=== PATIENT | male | born 1980 | race Caucasian/White ===

== ENCOUNTER 2017-10-06 10:26 | Emergency (ER) | payer OTHER ==
[~2017-10-06] VITALS: Ht 167.6 cm; Wt 65.7 kg
[~2017-10-06 10:26] MED LIST: LEVO25TA PO; TEST5GEL TOP
[2017-10-06 10:35] VITALS: Ht 167.6 cm; Wt 65.7 kg
[2017-10-06 11:07] VITALS: TEMP 36.8
[2017-10-06] MEDS ORDERED: BUPR1SUB23 PO (11:08)
[2017-10-06 11:40] LABS: BASO % 0.4 %; BASO ABS # 0.03 K/uL (0-0.2); COMPLETE YES; HEMATOCRIT 43.5 % (42-52); IG% 0.1 %; LYMPH % 28.3 %; LYMPH ABS # 2.32 K/uL (1.2-3.4); MEAN CELL VOLUME 93.1 fL (80-100); MEAN CORPUSCULAR HEMOGLOBIN 31.5 pg (25-34); MEAN CORPUSCULAR HGB CONC 33.8 g/dl (32-36); MEAN PLATELET VOLUME 9.6 fL (7.4-10.4); MONO % 10.5 %; NEUT % 56.7 %; PLATELET COUNT 254 K/uL (130-400); RED BLOOD COUNT 4.67 M/uL (4.7-6.1)
[2017-10-06 11:56] LABS: BUN/CREATININE RATIO 7.4 (10-20); CALCIUM 8.3 mg/dl (8.5-10.1); CREATININE 0.64 mg/dl (0.60-1.40); POTASSIUM 3.9 mmol/L (3.5-5.1)
--- NOTE | 2017-10-06 11:56 | DIAGNOSTIC IMAGING REPORT ---
CHEST ONE VIEW PORTABLE CLINICAL HISTORY: Lower extremity swelling. COMPARISON STUDY: No previous studies for comparison. FINDINGS: Lung volumes are normal. No pneumothorax or pleural effusion is present. Cardiac size is normal. Mediastinal contours are normal. There is no evidence of pulmonary edema. IMPRESSION: No acute cardiopulmonary findings. Electronically signed by: Peter Montes De Oca M.D. 10/06/2017 11:55 AM Dictated Date/Time: 10/06/2017 11:54 AM
[2017-10-06 13:46] VITALS: BP 111/68; PULSE 65; O2SAT 98
--- NOTE | 2017-10-06 16:04 | EMERGENCY ROOM VISIT NOTE ---
History Report prepared by Scribe: Annamaria Mitchell Under the Supervision of: Dr. Brad Mota D.O. First contact with patient: 10:45 Chief Complaint: SWELLING TO EXTREMITY Stated Complaint: DRY,CRAMPS, SWELLING LIPS/LEGS History of Present Illness The patient is a 37 year old male who presents to the Emergency Room with complaints of persistent swelling to his bilateral legs for the past 1 week. He has also experienced "cramping" pain in his legs. Last night he took Sabine for allergy symptoms, and states it provided good relief for nasal congestion and sneezing. He denies any sore throat or ear pain. He states he feels dehydrated so he has been drinking a lot of fluids. The patient denies headache , change in vision, fevers, chest pain, shortness of breath, nausea, vomiting, diarrhea, pain with urination, and melena. He denies any recent changes to medications and states he has history of previous DVT or PE's. Source of History: patient Onset: 1 week [employer] Position: leg (bilateral) Review of Systems See HPI for pertinent positives & negatives. A total of 10 systems reviewed and were otherwise negative. Past Medical & Surgical Medical Problems: (1) Hypothyroidism (2) Opioid abuse Social History Smoking Status: Current Every Day Smoker Alcohol Use: occasionally Drug Use: other (opiates) Marital Status: single Housing Status: lives with family Occupation Status: unemployed Current/Historical Medications Scheduled Buprenorphine Hcl-Naloxone Hcl (Suboxone 8-2 Mg), 1 TAB PO BID Levothyroxine Sodium (Synthroid), 25 MCG PO QAM Testosterone (Androgel Pump), 10 MG TOP QAM Allergies Coded Allergies: No Known Allergies (Verified , 10/06/17) Physical Exam Vital Signs Date Time Temp Pulse Resp B/P (MAP) Pulse Ox O2 Delivery O2 Flow Rate FiO2 10/06/17 13:46 65 18 111/68 98 10/06/17 12:38 63 18 118/58 98 Room Air 10/06/17 11:08 90 10/06/17 11:07 36.8 85 17 130/63 100 Room Air 10/06/17 10:35 36.8 102 17 111/54 99 Room Air Physical Exam GENERAL: Sitting up in bed, alert, disheveled, chronically ill-appearing EYE EXAM: normal conjunctiva. OROPHARYNX: no exudate, no erythema, lips, buccal mucosa, and tongue normal and mucous membranes are moist, poor dentition NECK: supple, no nuchal rigidity, no adenopathy, non-tender LUNGS: Clear to auscultation. Normal chest wall mechanics HEART: Tachycardic heart rate, no murmurs, S1 normal and S2 normal ABDOMEN: abdomen soft, non-tender, normo-active bowel sounds, no masses, no rebound or guarding. BACK: Back is symmetrical on inspection and there is no deformity, no midline tenderness, no CVA tenderness. SKIN: no rashes and no bruising UPPER EXTREMITIES: upper extremities are grossly normal. LOWER EXTREMITIES: Pitting edema bilaterally, calves are equal bilaterally NEURO EXAM: Normal sensorium, cranial nerves II-XII intact, normal speech, no weakness of arms, no weakness of legs. Gross sensation intact. Medical Decision & Procedures ER Provider Diagnostic Interpretation: Radiology results as stated below per my review and the radiologist's interpretation: CHEST ONE VIEW PORTABLE CLINICAL HISTORY: Lower extremity swelling. COMPARISON STUDY: No previous studies for comparison. FINDINGS: Lung volumes are normal. No pneumothorax or pleural effusion is present. Cardiac size is normal. Mediastinal contours are normal. There is no evidence of pulmonary edema. IMPRESSION: No acute cardiopulmonary findings. Electronically signed by: Peter Montes De Oca M.D. 10/06/2017 11:55 AM Laboratory Results 10/06/17 11:25 Red Blood Count 4.67, Mean Corpuscular Volume 93.1, Mean Corpuscular Hemoglobin 31.5, Mean Corpuscular Hemoglobin Concent 33.8, Mean Platelet Volume 9.6, Neutrophils (%) (Auto) 56.7, Lymphocytes (%) (Auto) 28.3, Monocytes (%) (Auto) 10.5, Eosinophils (%) (Auto) 4.0, Basophils (%) (Auto) 0.4, Neutrophils # (Auto ) 4.65, Lymphocytes # (Auto) 2.32, Monocytes # (Auto) 0.86, Eosinophils # (Auto ) 0.33, Basophils # (Auto) 0.03 10/06/17 11:25 Test 10/06/17 11:25 White Blood Count 8.20 K/uL (4.8-10.8) Red Blood Count 4.67 M/uL (4.7-6.1) Hemoglobin 14.7 g/dL (14.0-18.0) Hematocrit 43.5 % (42-52) Mean Corpuscular Volume 93.1 fL (80-100) Mean Corpuscular Hemoglobin 31.5 pg (25-34) Mean Corpuscular Hemoglobin Concent 33.8 g/dl (32-36) Platelet Count 254 K/uL (130-400) Mean Platelet Volume 9.6 fL (7.4-10.4) Neutrophils (%) (Auto) 56.7 % Lymphocytes (%) (Auto) 28.3 % Monocytes (%) (Auto) 10.5 % Eosinophils (%) (Auto) 4.0 % Basophils (%) (Auto) 0.4 % Neutrophils # (Auto) 4.65 K/uL (1.4-6.5) Lymphocytes # (Auto) 2.32 K/uL (1.2-3.4) Monocytes # (Auto) 0.86 K/uL (0.11-0.59) Eosinophils # (Auto) 0.33 K/uL (0-0.5) Basophils # (Auto) 0.03 K/uL (0-0.2) RDW Standard Deviation 47.6 fL (36.4-46.3) RDW Coefficient of Variation 14.0 % (11.5-14.5) Immature Granulocyte % (Auto) 0.1 % Immature Granulocyte # (Auto) 0.01 K/uL (0.00-0.02) Anion Gap 2.0 mmol/L (3-11) Est Creatinine Clear Calc Drug Dose 143.9 ml/min Estimated GFR () 146.0 Estimated GFR (Non- 126.0 BUN/Creatinine Ratio 7.4 (10-20) Calcium Level 8.3 mg/dl (8.5-10.1) Total Bilirubin 0.6 mg/dl (0.2-1) Direct Bilirubin 0.2 mg/dl (0-0.2) Aspartate Amino Transf (AST/SGOT) 65 U/L (15-37) Alanine Aminotransferase (ALT/SGPT) 126 U/L (12-78) Alkaline Phosphatase 83 U/L (45-117) Pro-B-Type Natriuretic Peptide 62 pg/ml (0-450) Total Protein 7.5 gm/dl (6.4-8.2) Albumin 3.5 gm/dl (3.4-5.0) Lipase 60 U/L (73-393) Laboratory results per my review. ECG Indication: weakness Rate (beats per minute): 65 Rhythm: sinus rhythm Findings: no ectopy, other (normal axis) Comparison ECG Date: no prior available ED Course ED COURSE: Vital signs were reviewed and showed the patient is tachycardic The patients medical record was reviewed The above diagnostic studies were performed and reviewed. ED treatments and interventions as stated above. 1053: The patient was evaluated in room C7. A complete history and physical examination was performed. 1345: Upon reevaluation, the patient is feeling well and resting comfortably. I discussed my findings with the patient and he understands and agrees with the treatment plan. Based on the patients age, coexisting illnesses, exam and lab findings the decision to treat as an outpatient was made. The patient remained stable while under my care. The patient appeared well at the time of discharge. Medical Decision Differential Diagnosis includes but is not limited to dehydration, stroke, anemia, hypoglycemia, hyponatremia, hypernatremia, urinary tract infection, pneumonia, bronchitis, sepsis, gastroenteritis, additional abdominal pathology, metabolic abnormalities and infections. Patient is a 37-year-old male who presents to ER for cramping in his bilateral lower extremities associated with feeling extremely thirsty. Patient does have a history of hepatitis C. No other complaints. CBC along with BMP was unremarkable with the exception of a CO2 of 33. BSG was on 114. AST and ALT were slightly elevated which is consistent with chronic hepatitis C. Lipase is normal. Chest x-ray was unremarkable. Patient was updated at bedside. He was completely neurologically intact. Calves are equal bilaterally. No chest pain or shortness of breath. Patient was discharged follow-up with PCP. Discussed with Pt concerning signs and symptoms to watch out for. Pt was instructed to follow up with their PCP and discussed with the patient their option to return to the ED at anytime for persistent or worsening symptoms. The appropriate anticipatory guidance and out-patient management, including indications for return to the emergency department, were explained at length to the patient and understood. Medication Reconcilliation Current Medication List: was personally reviewed by me Blood Pressure Screening Patient's blood pressure: Low blood pressure Impression Primary Impression: Bilateral leg cramps Additional Impression: Localized swelling of both lower extremities Scribe Attestation The scribe's documentation has been prepared under my direction and personally reviewed by me in its entirety. I confirm that the note above accurately reflects all work, treatment, procedures, and medical decision making performed by me. Departure Information Dispostion Home / Self-Care Referrals No Doctor, Assigned (PCP) Patient Instructions ED Muscle Pain Leg Cramps, My [facility] Additional Instructions Please follow up with your primary care doctor with in the next 24 hours. Any worsening of your symptoms, please return to the ED immediately. This includes any fevers greater than 100.4, worsening pain, chest pain, shortness breath, persistent nausea, vomiting, unable to eat or drink, or any other concerning signs or symptoms from your standpoint. Please follow up with her PCP for the slight elevation in LFTs. Problem Qualifiers
== END 2017-10-06 13:47 | disposition home or self-care (01) ==
LOC: C.EDB 10:27 → C.EDC 13:47
DX: R60.9 Edema, unspecified (principal); E03.9 Hypothyroidism, unspecified; F17.200 Nicotine dependence, unspecified, uncomplicated; F11.20 Opioid dependence, uncomplicated